=== PATIENT | male | born 1995 | race Asian ===

== ENCOUNTER 2019-03-14 17:59 | Emergency (ER) | payer SELFPAY ==
[~2019-03-14] VITALS: Ht 167.6 cm; Wt 65.8 kg
[2019-03-14 18:03] VITALS: BP_SYST 140
--- NOTE | 2019-03-14 18:09 | NUR ---
Patient to ER bed 8 to gown for evaluation. Side rails up. Report given to Vaishnavi PORTILLO.
--- NOTE | 2019-03-14 18:21 | NUR ---
Patient brought in BLS in custody of [facility] for acute onset of unprovoked chest pain that began earlier today when arrested. Pain 2/10 Denies any nausea, vomiting or diarrhea. No other complaints/injuries per patient or as noted. Will continue to monitor.
--- NOTE | 2019-03-14 18:22 | NUR ---
ER Dr. Murguia at bedside examining patient.
[2019-03-14 19:10] VITALS: BP_SYST 132
--- NOTE | 2019-03-14 19:10 | NUR ---
Patient and [facility] Deputy given written and verbal discharge instructions and verbalizes understanding. ER MD discussed with patient the results and treatment provided. Patient in stable condition. ID arm band removed.No Rx given. Patient educated on pain management and to follow up with PMD. Pain Scale 0/10 Opportunity for questions provided and answered. Medication side effect fact sheet provided.
== END 2019-03-14 19:10 ==
LOC: SED 17:59
DX: R45.851 Suicidal ideations (principal); R07.89 Other chest pain; R03.0 Elevated blood-pressure reading, without diagnosis of hypertension
CPT/HCPCS: 71045; 93005; 99283